=== PATIENT | female | born 1990 | race Caucasian/White ===

== ENCOUNTER 2024-10-24 20:17 | Emergency (ER) | payer OTHER, SELFPAY ==
[2024-10-24 20:19] VITALS: BMI 24.0
--- NOTE | 2024-10-24 20:23 | EKG_ITS ---
[facility] Test Date: 2024-10-24 Pat Name: AMBROCIO SINGH Department: Room: - Gender: Female [employer]: : 1990 Requested By: ED Temporary Provider Order Number: [id number] Reading MD: ED Temporary Provider Measurements Intervals [place] Rate: 86 P: 59 [place]: 143 QRS: 3 QRSD: 89 T: 49 QT: 350 QTc: 420 Interpretive Statements SINUS RHYTHM LOW QRS VOLTAGE IN PRECORDIAL LEADS [QRS DEFLECTION < 1.0 mV IN CHEST LEADS] No previous ECG available for comparison /[id number]/[id number]
[2024-10-24 20:41] VITALS: BP 141/93; PULSE 93; RESP 18; TEMP 36.8; O2SAT 95
--- NOTE | 2024-10-24 20:59 | XR_ITS ---
Examination: PA lateral chest 2 views Technique: Upright PA lateral chest 2 views Exam date and time: October 24, 2024 2109 hrs. Indications: Coughing beginning 4 weeks ago. Findings: Normal heart size Lungs are clear. The osseous structures are intact Impression: No active disease
--- NOTE | 2024-10-24 21:00 | EDRME_ITS ---
Rapid Medical Screening Exam E Arrival date/time: 10/24/24 20:17 34F with no significant PMH presents to ED with several days of worsening R- sided CP (some stridor/crackles present) and 4 weeks of cough. Patient had some leftover Augmentin lying around and is on day 7 of it w/o improvement. Chief Complaint: Chest Pain Time Seen by Provider: 10/24/24 20:59 Vital signs: Vital Signs Temperature 98.2 F 10/24/24 20:41 Pulse Rate 93 10/24/24 20:41 Respiratory Rate 18 10/24/24 20:41 Blood Pressure 141/93 H 10/24/24 20:41 Pulse Oximetry (%) 95 10/24/24 20:41 Oxygen Delivery Method Room Air 10/24/24 20:41
[2024-10-24] MEDS: ALBUTEROL/IPRATROPIUM (Duoneb) RT SOL 3 ML NEBU INH (21:22)
[2024-10-24 21:25] VITALS: PULSE 70; RESP 20; O2SAT 98
[2024-10-24] MEDS: DEXAMETHASONE SOD PHOS INJ 10 MG/ML VIAL PO (22:24)
[2024-10-24 23:06] LABS: Basophils # (Auto) 0.1 Thou/mm3 (0.0-0.2); Basophils % (Auto) 1 % (0-2.5); Eosinophils # (Auto) 0.1 Thou/mm3 (0.0-0.5); Eosinophils % (Auto) 1 % (0-10); Hematocrit 37.5 % (36.0-46.0); Hemoglobin 12.8 g/dL (12.0-16.0); Immature Granulocytes % (Auto) 0 % (0-0); Immature Granulocytes Auto 0.03 Thou/mm3 (0.00-0.00); Lymphocytes # (Auto) 2.5 Thou/mm3 (1.0-4.8); Lymphocytes % (Auto) 31 % (10-50); Mean Corpuscular HGB Conc 34.1 g/dl (31.0-37.0); Mean Corpuscular Hemoglobin 30.9 pg (25.0-35.0); Mean Corpuscular Volume 91 fL (80-100); Monocytes # (Auto) 0.5 Thou/mm3 (0.0-0.8); Monocytes % (Auto) 6 % (0-12); Neutrophils # (Auto) 5.1 Thou/mm3 (1.8-7.7); Neutrophils % (Auto) 62 % (37-80); Nucleated Red Blood Cell % 0 /100 WBC (0); Platelet Count 437 Thou/mm3 (140-440); RDW Standard Deviation 43.4 fL (36.4-46.3); Red Blood Count 4.14 Miln/mm3 (4.00-5.20); White Blood Count 8.3 Thou/mm3 (3.6-11.0)
[2024-10-24 23:25] LABS: B-Type Natriuretic Peptide < 20 pg/mL (0-100)
[2024-10-24 23:32] LABS: Alanine Aminotransferase 24 U/L (10-49); Alkaline Phosphatase 74 U/L (46-116); Anion Gap 7 (7-16); Aspartate Amino Transferase 36 U/L (0-34); BUN/Creatinine Ratio 13 Ratio (12-20); Bilirubin,Total 0.4 mg/dL (0.3-1.2); Blood Urea Nitrogen 12 mg/dL (9-23); Chloride 106 mMol/L (98-107); Creatinine (Component) 0.9 mg/dL (0.6-1.3); Estimated Creatinine Clearance 75.3 mL/min (>60); Globulin 2.5 gm/dL (2.3-3.5); Glucose 95 mg/dL (74-106); Osmolality,Calculated 273 (275-295); Potassium 4.4 mMol/L (3.4-5.1); Procalcitonin < 0.04 ng/ml (0.0-0.49); Sodium 137 mMol/L (136-145); Total Protein 7.5 gm/dL (5.7-8.2); Troponin I < 0.002 ng/mL (0.0-0.045); eGFR > 60 See Note
--- NOTE | 2024-10-25 00:44 | PC.NURSE ---
pt informed this fiction and nonfiction prose writer that she has to leave due to babysitting conflict and that she can check her pt portal for any results, she also stated she spoke to nurse to inform them as well but did not tell this fiction and nonfiction prose writer who it was, E nurse [place] and e provider Rigo were made aware of pt leaving
[2024-10-25 13:14] LABS: Cocci Serology, IgM Negative (Negative)
[2024-10-27 05:56] LABS: Cocci Serology, IgG Negative (Negative)
== END 2024-10-25 00:44 | disposition left against medical advice (07) ==
LOC: SERX 21:45
PROVIDERS: Physician Assistant; Emergency Provider Emergency Medicine; PCP Family Medicine
DX: R07.9 Chest pain, unspecified (principal); R05.9 Cough, unspecified; R94.31 Abnormal electrocardiogram [ECG] [EKG]; Z53.29 Procedure and treatment not carried out because of patient's decision for other reasons
CPT/HCPCS: 36415; 71046; 80053; 83880; 84145; 84484; 85025; 86331; 86635; 93005; 94640; 99281; A9270; J1100